=== PATIENT | female | born 1940 | race Caucasian/White ===

== ENCOUNTER 2016-09-25 20:08 | Emergency (ER) | payer MEDICARE, OTHER ==
[2016-09-25] MEDS ORDERED: DIPHTH,PERTUSS(ACELL),TET VAC 0.5 ML VIAL IM ONE ×2 (20:36)
--- NOTE | 2016-09-25 20:41 | ERNOTE ---
Upper Extremity HPI - Narrative Date of Service: 09/25/16 - General Extremities Pain Location: hand: left Time Seen by Provider: 09/25/16 20:38 Source: patient, RN notes reviewed Exam Limitations: no limitations - Immun/Allergies/Home Medications Immunizations: IMMUNIZATION HX Immunizations Up to Date Yes History of Influenza Vaccine Yes Hx Pneumococcal Vaccination Yes Allergies/Adverse Reactions: Allergies Allergy/AdvReac Type Severity Reaction Status Date / Time No Known Allergies Allergy Unverified 09/25/16 20:26 Home Medications: HOME MEDICATIONS Aspirin/Calcium Carbonate/Mag [Aspirin Buffered 325 mg Tab] 1 each PO DAILY [Last Taken Unknown] Lipitor 20 mg PO DAILY 09/25/16 [Last Taken Unknown] - History of Present Illness Narrative: 76 y/o female ambulatory to the ED for 2 small lacerations to the dorsum of her left hand. Her handicapped son inadvertently scratched her with his fingernails while trying to grab her hand. She has washed the wounds with soap and water. She reports having trouble getting them to stop bleeding, but they currently have stopped. She is unsure of when her last tetanus vaccination was given. Date (Duration): 09/25/16 Time (Timing): 16:30 Location of Incident: home Severity: mild Other Injuries: Reports: none Prior Treament: Denies: recently seen Review of Systems - Review of Systems Constitutional: Present: no symptoms reported EYE: Present: no symptoms reported ENT: Present: no symptoms reported Respiratory: Present: no symptoms reported Cardiology: Present: no symptoms reported Gastrointestinal/Abdominal: Present: no symptoms reported Genitourinary: Present: no symptoms reported Musculoskeletal: Absent: joint pain, joint swelling Skin: Present: change in color. Absent: lesions, lumps Neurological: Absent: weakness, numbness, tingling Endocrine: Present: no symptoms reported Hematologic/Lymphatic: Present: easy bruising, easy bleeding Psych: Present: no symptoms reported - Patient's Past Medical History Patient History - Medical: No pertinent hx Patient History - Cardiac/Respiratory: Hyperlipidemia, Other Patient History - Cancer: No Hx of Cancer Patient History - Surgical Procedures: Cholecystectomy, Hysterectomy, Other, Hernia Repair Patient History - Other: None - Social History Living Situations: alone Abuse History: No History of abuse Psych History: No pertinent hx Smoking Status: Never smoker Have you smoked in the past 12 months: No Do you dip or chew tobacco: No Alcohol Use: none Drug Use: none - Immunizations Immunizations Up to Date: No Hx Pneumococcal Vaccination: Yes History of Influenza Vaccine: Yes Physical Exam - Physical Exam General Appearance: Present: wd/wn, alert, no apparent distress Respiratory: Present: no respiratory distress, no accessory muscle use Extremity Exam: Present: normal range of motion, no edema. Absent: joint redness, joint swelling Neurological Exam: Present: alert, oriented, normal mood/affect, no motor/ sensory deficits Skin Exam: Present: normal color, warm/dry, other - 2 small lacerations to dosum of left hand with surrounding ecchymosis ED Progress - Vital Signs Patient's Vital Signs:: I have reviewed the patient's vital signs. Vital Signs: Vital Signs 09/25/16 20:15 Temperature 36.6 C Pulse Rate 94 Respiratory 14 Rate Blood Pressure 140/73 O2 Sat by Pulse 98 Oximetry - Progress/Reassessment Chief Complaint: Upper Extremity Injury/Problem Progress:: Improved Procedures Left dorsal hand (distal) Length of Repair/Wound (cm): 1 Wound's Depth/Shape: superficial, flap Wound Explored: clean Wound Repaired With: Dermabond Complications: Pt felipe procedure well Left Proximal Dorsal Hand Length of Repair/Wound (cm): 1.5 Wound's Depth/Shape: superficial, flap Wound Explored: clean Wound Repaired With: Dermabond Complications: Pt felipe procedure well Departure Clinical Impression: Laceration of hand Qualifiers: Encounter type: initial encounter Foreign body presence: without foreign body Laterality: left Qualified Code(s): S61.412A - Laceration without foreign body of left hand, initial encounter - Departure Disposition: Home self-care Condition: Good Instructions: Tissue Adhesive Wound Care Referrals: Nik Saldana MD [Primary Care Provider] -
--- OUTSIDE RECORDS SUMMARY | 2016-09-25 20:59 | XMS REPORT | Continuity of Care Document ---
:1940 Author Organization [facility] ([facility]) Address [address] [address] Phone [phone] Care Team Providers Name Role Phone [phone], Self Referral Primary Care Provider [phone] Source Comments This disclosure is being made pursuant to the Care Everywhere program, applicable federal and state laws, and may not contain all informaitonavailable regarding this patient.[facility] ([facility]) Active Allergies and Adverse Reactions No Known Allergies Current Medications Prescription Sig. Disp. Refills Start Date End Date Status vitamin A 8,000 unit Take 8,000 Units Active capsule by mouth daily. vitamin E 400 unit capsule Take 400 Units by Active mouth daily. cyanocobalamin Take 1,000 mcg by Active (CYANOCOBALAMIN) 500 mcg mouth daily. tablet CALCIUM CARBONATE (CALCIUM Take 1,200 mg by Active 600 PO) mouth daily. DOCOSAHEXANOIC ACID/EPA Take 1,200 mg by Active (FISH OIL PO) mouth daily. SALMON OIL/OMEGA-3 FATTY Take 1,000 mg by Active ACIDS (SALMON OIL-1000 PO) mouth daily. Flaxseed Oil 1,000 mg Cap Take 1,000 mg by Active mouth daily. ferrous sulfate (IRON) 325 Take 325 mg by Active mg (65 mg Iron) tablet mouth daily. Active Problems Not on file Social History Tobacco Use Types Packs/Day Years Used Date Never Assessed Plan of Care Health Maintenance Due Date Last Done Comments Hepatitis B Vaccine (1 of 3 - Primary Series) 1940 Tdap Vaccine 1952 Lipid Disorder Screening 09/19/1959 Td Vaccine 09/19/1959 Mammogram 1981 Colonoscopy 1991 Zoster Vaccine 2001 Osteoporosis Screening (DXA Bone Density) 2006 Pneumococcal Vaccine (1 of 2 - PCV13) 2006 Influenza Vaccine: Seasonal (#1) 11/14/2015 Results from Last 3 Months Not on file
[2016-09-25 21:19] VITALS: BP 150/94
== END 2016-09-25 20:53 | disposition home or self-care (01) ==
LOC: ER 20:08
PROC: 0HQGXZZ Repair Left Hand Skin, External Approach (ICD-10-PCS; principal; 2016-09-25)
DX: S61.412A Laceration without foreign body of left hand, initial encounter (principal); Y28.8XXA Contact with other sharp object, undetermined intent, initial encounter; Y92.009 Unspecified place in unspecified non-institutional (private) residence as the place of occurrence of the external cause; Z23 Encounter for immunization